=== PATIENT | male | born 1950 | race Caucasian/White ===

== ENCOUNTER 2020-09-04 06:24 | Observation (INO) ==
--- NOTE | 2020-08-31 09:16 | Anesthesiology Consultation ---
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 Preoperative COVID19 testing completed on 08/29, results negative. Chart Review Chart Review: Acceptable Risk for Surgery and Patient NOT seen in Pre Admission Testing History Surgery Operation Date: 09/04/20 07:00 Proposed Procedures p Open Left Inguinal Hernia Repair - Ricardo Davis MD, FACS Height/Weight Height: 5 ft 9 in Weight: 79.379 kg Allergies Allergy/AdvReac Type Severity Reaction Status Date / Time No Known Allergies Allergy Unverified 08/15/20 16:01 Medications Home Medications Medication Instructions Recorded Confirmed Last Taken multivitamin 1 tab PO DAILY 08/09/20 08/15/20 Unknown Medical Cannabis 1 dose INHALATION UD 08/15/20 08/15/20 Unknown Past Medical History Medical History Medical cannabis use No known health problems Past Family History Family History Uncle Throat cancer Father Myocardial infarction Grandfather (Maternal) Dementia Denies family history of Ovarian cancer Prostate cancer Breast cancer Lung cancer Colorectal cancer Stroke Past Surgical History Surgical History History of colonoscopy Hx of appendectomy Hx of tonsillectomy Social History Smoking Status: Former smoker tobacco type: cigarettes Do You Dip or Chew Tobacco: No Smoking End Date: 1991 Hx Alcohol Use: Yes alcohol intake frequency: holidays/special occasions only Hx Substance Use: Yes (medical cannabis (vape/flower)) substance use type: marijuana Last Used Substance Other:: 08/15/20 Lab Results Anesthesia Preop Results Results Anesthesia Widget: WBC 6.08 K/uL (4.8-10.8) 08/29/20 Hgb 15.6 g/dL (14.0-18.0) 08/29/20 Hct 46.6 % (42-52) 08/29/20 Plt 233 K/uL (130-400) 08/29/20 Na 143 mmol/L (136-145) 08/29/20 K 4.8 mmol/L (3.5-5.1) 08/29/20 Cl 114 mmol/L (98-107) H 08/29/20 CO2 27 mmol/L (21-32) 08/29/20 BUN 18 mg/dl (7-18) 08/29/20 Creat 0.79 mg/dl (0.6-1.4) 08/29/20 Glucose Level 81 mg/dl (70-99) 08/29/20 Testing Electrocardiogram Date: 08/29/20 Normal sinus rhythm @ 64bpm with sinus arrhythmia. Left axis deviation.
[~2020-09-04 06:24] MED LIST: LACTATED RINGER'S 1,000 ML IV SCH; ceFAZolin 2000MG 2,000 MG/15 ML SYR IV SCH
[2020-09-04] MEDS ORDERED: PROPOFOL IV EMULSION 10 MG/ML 20 ML VIAL IV ONE (07:13)
[2020-09-04] MEDS ORDERED: MIDAZOLAM HCL 1 MG/ML 2ML VIAL ONE (07:13)
[2020-09-04] MEDS ORDERED: ONDANSETRON INJ 2 MG/ML 2 ML VIAL ONE (07:13)
[2020-09-04] MEDS ORDERED: LIDOCAINE 2% 2 ML VIAL/AMP(20MG/ML) INFIL ONE (07:13)
[2020-09-04] MEDS ORDERED: fentaNYL citrate 100 MCG/2 ML VIAL ONE (07:13)
[2020-09-04] MEDS ORDERED: fentaNYL citrate 100 MCG/2 ML VIAL IV PRN (07:53)
[2020-09-04] MEDS ORDERED: ePHEDrine sulfate 50 MG/ML AMP IV PRN (07:53)
[2020-09-04] MEDS ORDERED: ONDANSETRON INJ 2 MG/ML 2 ML VIAL IV PRN ×2 (07:53→11:03)
[2020-09-04] MEDS ORDERED: ATROPINE SULFATE 0.1 MG/ML 10ML SYR IV PRN (07:53)
[2020-09-04] MEDS ORDERED: HYDROmorphone INJ 1 MG/ML SYRINGE IV PRN (07:53)
[2020-09-04] MEDS ORDERED: BUPIVACAINE 0.5 % 5 MG/1 ML MPF 30ML VIAL ONE (08:14)
[2020-09-04] MEDS ORDERED: ceFAZolin 330 MG/ML 1 GM VIAL ONE (08:14)
--- NOTE | 2020-09-04 08:21 | History & Physical Bridge Note ---
Date of Service September 04, 2020 History & Physical Bridge Note I have examined the patient, reviewed the History & Physical and in the interval since the performance of the History & Physical I have noted the following changes of clinical significance: no changes noted
[2020-09-04] MEDS ORDERED: GLYCOPYRROLATE 0.2 MG/ML VIAL ONE (09:35)
[2020-09-04] MEDS ORDERED: NEOSTIGMINE METHYLSULFATE 1 MG/ML 10ML VIAL ONE (09:35)
[2020-09-04] MEDS ORDERED: ACETAMINOPHEN 1,000 MG/100 ML VIAL IV ONE (09:53)
--- NOTE | 2020-09-04 09:53 | Post Operative Brief Note ---
PG Immediate Post Op with CF Date of Surgery September 04, 2020 Pre & Post Diagnosis Operation Date: 09/04/20 08:05 Pre-Op Diagnosis: Left Inguinal Hernia Post-Op Diagnosis: Left Inguinal Hernia I identified the patient and participated in the time-out.: Yes Procedure Operation Date: 09/04/20 08:05 Actual Procedures p Open Left Inguinal Hernia Repair with Mesh(Left) - Ricardo Davis MD, FACS Surgeon Ricardo Davis MD, FACS Boat Dispatcher Ginger Yang Estimated Blood Loss 10 Findings Consistent with Post-Op Diagnosis Specimens Specimen Description: NONE
--- NOTE | 2020-09-04 10:36 | Anesthesiology Progress Note ---
Date of Service September 04, 2020 Anesthesia Post Procedure Vital Signs Vital Signs: Temp Pulse Pulse Resp BP BP Pulse Ox 09/04/20 10:25 51 L 18 120/75 100 09/04/20 10:15 54 L 20 132/68 100 09/04/20 10:08 36.1 C L 61 12 145/80 H 145/80 H 97 09/04/20 06:48 36.8 C 69 18 121/86 97 Transfer of Care Handoff Completed per policy Notes Mental Status: alert / awake / arousable and participated in evaluation Patient Amnestic to Procedure: Yes Nausea / Vomiting: adequately controlled Pain: adequately controlled Airway Patency, RR, SpO2: stable & adequate BP & HR: stable & adequate Hydration State: stable & adequate Anesthetic Complications: no major complications apparent and Pt Satisfied with anesthetic care
[2020-09-04] MEDS ORDERED: oxyCODONE HCL IR 5 MG TAB (IMMEDIATE RELEASE) PO PRN (11:03)
[2020-09-04] MEDS ORDERED: PROMETHAZINE HCL 12.5 MG in SODIUM CHLORIDE 0.9% 50 ML IV PRN (11:03)
[2020-09-04] MEDS ORDERED: PROMETHAZINE HCL 25 MG in SODIUM CHLORIDE 0.9% 50 ML IV PRN (11:03)
[2020-09-04] MEDS ORDERED: IBUPROFEN 600 MG TAB PO PRN (11:03)
[2020-09-04] MEDS ORDERED: MoRPHine SULFATE 2 MG/ML CARP IV PRN (11:03)
[2020-09-04] MEDS ORDERED: SODIUM CHLORIDE 0.9% 500 ML IV SCH (11:03)
[2020-09-04] MEDS ORDERED: ACETAMINOPHEN 325 MG TAB PO PRN (11:03)
--- NOTE | 2020-09-04 12:07 | Operative Report (OR) ---
DATE OF OPERATION: 09/04/2020 NAME OF OPERATION: Open left inguinal hernia repair. PREOPERATIVE DIAGNOSIS: Left inguinal hernia. POSTOPERATIVE DIAGNOSES: Left inguinal hernia with very large indirect defect. STAFF SURGEON: Ricardo Davis MD. COTTON SAMPLER: Magaly Yang PA-C. ANESTHESIA: General. DESCRIPTION OF PROCEDURE: The patient was brought in the operating room and placed on the operating table in supine position. His lower abdomen prepped and draped in usual fashion. My home care assistant did help with prepping, draping, repair of the hernia and closure of the wound. 0.5% plain Marcaine was used to anesthetize skin and subcutaneous tissue in the left lower quadrant, incision made parallel to the inguinal ligament, carrying dissection down identifying the external oblique fibers, which were incised along their length to the external ring. The patient had a very large hernia sac with defect, which was dissected away from the cord structures. He also had significant cremasteric fibers involved, which were transected and ligated using suture. The defect was then relatively large. The hernia sac was reduced. The tissue was partially reapproximated medially using interrupted 0 silk suture and then a large mesh plug placed into the internal ring, secured to surrounding tissue using 0 silk suture. Then a very large mesh patch placed into the floor of the canal around the cord structures, secured to surrounding tissue using 2-0 Ethibond suture. The site was irrigated with antibiotic solution. External oblique fibers closed over the mesh and around the cord structures using 2-0 Ethibond suture and then the subcutaneous tissue reapproximated using 2-0 plain suture with skin reapproximated using 4-0 nylon and Steri-Strips. The patient was transferred to recovery room in stable condition. I attest to the content of the Intraoperative Record and any orders documented therein. Any exception s are noted below.
[2020-09-04] MEDS ORDERED: PNEUMOCOCCAL Polysaccharide Vaccine 25mcg/0.5mL vial/Syr IM ONE (15:15)
[2020-09-04] MEDS: ceFAZolin 1000MG 1,000 MG/7.5 ML SYR IV SCH ×2 (16:36→23:17)
[2020-09-04] MEDS: DOCUSATE SODIUM/SENNA 50/8.6MG TAB PO SCH (20:20)
[2020-09-04] MEDS: MAGNESIUM HYDROXIDE SUSP 30 ML UDC PO SCH (20:20)
[2020-09-05 07:48] VITALS: BP 133/77; PULSE 70; TEMP 98.2; O2SAT 95
[2020-09-05] MEDS: MAGNESIUM HYDROXIDE SUSP 30 ML UDC PO SCH (08:38)
[2020-09-05] MEDS: ceFAZolin 1000MG 1,000 MG/7.5 ML SYR IV SCH (08:38)
[2020-09-05] MEDS: DOCUSATE SODIUM/SENNA 50/8.6MG TAB PO SCH (08:38)
--- NOTE | 2020-09-05 22:19 | Discharge Summary (DS) ---
PRINCIPAL DIAGNOSIS: Large left inguinal hernia. PROCEDURE: The patient underwent open left inguinal hernia repair, which was into the scrotum. HISTORY OF PRESENT ILLNESS: The patient is a 70-year-old male with a very large left inguinal hernia, which traversed into the scrotum. The patient was brought into the hospital on 09/04/2020 where he underwent open left inguinal hernia repair. He did quite well and did well overnight and is felt stable for discharge home today to be followed in the surgical clinic within 1 week.
== END 2020-09-05 15:45 | disposition home or self-care (01) ==
LOC: 3N 06:24 → ASU 06:24